=== PATIENT | male | born 1980 | race Caucasian/White ===

== ENCOUNTER 2024-01-12 04:19 | Emergency (ER) | payer SELFPAY ==
[~2024-01-12] VITALS: Ht 167.6 cm; Wt 68.0 kg
[2024-01-12 04:20] VITALS: PULSE 71; RESP 18; O2SAT 100
[2024-01-12] MEDS: ETOMIDATE (2MG/ML) 20ML VIAL IV ONE ×2 (04:35→04:36)
[2024-01-12] MEDS: MIDAZOLAM HCL 0 ML IV ONE (04:36)
[2024-01-12] MEDS: MIDAZOLAM DRIP 50 mg/50mL 0 ML IV ONE (04:36)
[2024-01-12] MEDS: MIDAZOLAM DRIP 50 mg/50mL 50 ML IV SCH (04:36)
[2024-01-12] MEDS: ROCURONIUM 10MG/ML 10ML VIAL IV ONE ×2 (04:36)
[2024-01-12] MEDS: MIDAZOLAM DRIP 50 mg/50mL 50 ML IV ONE (04:39)
[2024-01-12] MEDS: NOREPINEPHRINE 8 MG/250ML KIT 0 ML IV ONE (04:40)
[2024-01-12 04:54] VITALS: BP 192/110; PULSE 73; RESP 20; TEMP 98.1; O2SAT 100
[2024-01-12] MEDS: LABETALOL HCL 5 MG/ML 4ML SYRINGE IV ONE (04:55)
== END 2024-01-12 05:06 | disposition short-term general hospital (02) ==
LOC: EDBD 04:19 → ER 04:19
DX: S09.8XXA Other specified injuries of head, initial encounter (principal); Z79.899 Other long term (current) drug therapy; V09.9XXA Pedestrian injured in unspecified transport accident, initial encounter; Y93.89 Activity, other specified; Y92.89 Other specified places as the place of occurrence of the external cause; Y99.8 Other external cause status
CPT/HCPCS: 31500; 51702; 71045; 93005; 96365; 96375; 99291; J2250; J3490